=== PATIENT | male | born 1965 ===

== ENCOUNTER 2018-06-14 10:56 | Outpatient (CLI) | payer OTHER ==
[~2018-06-14] VITALS: Ht 190.5 cm; Wt 90.7 kg
== END 2018-06-14 11:15 | disposition home or self-care (01) ==
LOC: OFIC 805 10:56
DX: R09.81 Nasal congestion (principal); J30.89 Other allergic rhinitis; J32.8 Other chronic sinusitis

== ENCOUNTER 2018-07-15 12:15 | Outpatient (CLI) | payer OTHER ==
[~2018-07-15] VITALS: Ht 182.9 cm; Wt 90.7 kg
== END 2018-07-15 12:30 | disposition home or self-care (01) ==
LOC: OFIC 805 12:15
DX: J32.8 Other chronic sinusitis (principal); J30.89 Other allergic rhinitis; R09.81 Nasal congestion

== ENCOUNTER 2018-09-16 11:11 | Outpatient (CLI) | payer OTHER ==
[~2018-09-16] VITALS: Ht 182.9 cm; Wt 90.7 kg
== END 2018-09-16 11:22 | disposition home or self-care (01) ==
LOC: OFIC 805 11:11
DX: J32.8 Other chronic sinusitis (principal); J30.89 Other allergic rhinitis